=== PATIENT | female | born 2000 | race Caucasian/White ===

== ENCOUNTER 2023-06-12 15:53 | Outpatient (REF) | payer OTHER, SELFPAY ==
[2023-06-13 09:29] LABS: Syphilis Screen Nonreactive (Nonreactive)
== END 2023-06-12 15:54 | disposition home or self-care (01) ==
LOC: HO.HHCL 15:53
PROVIDERS: Visit Provider Registered Nurse
DX: Z11.3 Encounter for screening for infections with a predominantly sexual mode of transmission (principal)
CPT/HCPCS: 36415; 86780

== ENCOUNTER 2024-03-03 13:43 | Outpatient (REF) | payer MEDICAID, SELFPAY ==
[2024-03-06 16:54] LABS: TS Negative Control Passed; TS Panel A 0; TS Panel B 0; TS Positive Control Passed; TSpotTB Negative (Negative)
== END 2024-03-03 13:44 | disposition home or self-care (01) ==
LOC: HO.HHCL 13:43
PROVIDERS: Visit Provider Internal Medicine
DX: Z00.00 Encounter for general adult medical examination without abnormal findings (principal)
CPT/HCPCS: 36415; 86481

== ENCOUNTER 2025-04-04 16:15 | Outpatient (REF) | payer MEDICAID, SELFPAY ==
--- OUTSIDE RECORDS SUMMARY | 2025-04-04 16:29 | XMS_ITS | Encounter Summary ---
Author Organization [employer] Address [address] [place] [address] Care Team Providers Care Almond Blancher Operator Name Role Phone [place] [facility] Primary Care Provider [phone] Reason for Visit * Reason Onset Date Comments Chart Prep 04/03/2025 Encounter Details Date Type Department Care Team ([facility] st Contact Info) Description 04/03/[address] [facility] [address] [place], [place] [phone] [facility] [address] [place], [place] [phone] Chart Prep Social History Tobacco Use Types Packs/Day Years Used Date Smoking Tobacco: Never Passive Smoke Exposure: Never Smokeless Tobacco: Never Alcohol Use Standard Drinks/Week Comments Not Currently 0 (1 standard drink = 0.6 oz pur e alcohol) Depression Answer Date Recorded Patient Health Questionnaire-9 Score 0 09/12/2024 Patient Health Questionnaire-9 Score 0 09/12/2024 Last PHQ-9: Questionnaire Data Not on file 1 11/13/2023 Housing Stability Answer Date Recorded What is your housing situation today? I have macho baldwin 05/30/[address] you li ve. Do you have problems with any of the following? None of the above 05/30/2024 Food Insecurity Answer Date Recorded Within the past 12 months, y ou worried that your food would run out before you got money to buy more: Never True 09/12/2024 Within the past 12 months,th e food you bought just didn't last and you didn't have enough money to get more: Never True 06/2024 Transportation Answer Date Recorded In the past 12 months, has l ack of transportation kept you from medical appts, meetings, work or from getting things needed for daily living? No 03/03/2024 Utilities Answer Date Recorded In the past 12 months, has t he electric, gas, oil or water company threatened to shut off services in your home? No 03/03/2024 Depression Answer Date Recorded Patient Health Questionnaire-2 Score 0 09/12/2024 Internet Access Answer Date Recorded Internet Access Q1 Yes 06/06/2024 Internet Access Q2 Not on file 06/06/2024 Comments No Sex and Gender Information Value Date Recorded Sex Assigned at Female 08/04/2022 10:16 AM EDT Legal Sex Female 10:16 AM EDT Gender Identity Female 08/04/2022 10:16 AM EDT Sexual Orientation Choose not to disclose 2021 10:16 AM EDT documented as of this encounter Miscellaneous Notes * Telephone Encounter - Paige Velasco [place] - 04/03/2025 3:14 PM EDT Chart Prep Labs: not applicable Images: not applicable Screenings: HIV screening Vaccines due: Covid Due, PCV20 Due, and MCV4 Due Referrals: Not Applicable Overdue care gaps: GAD7, Disability , and Oral Health documented in this encounter Plan of Treatment Upcoming Encounters Date Type Department Care Team (Late st Contact Info) Description 05/15/2025 1:00 PM EDT Office Visit [facility] MED[facility] [address] [place] [address] Ritu Segundo FNP [address] [place] [address] documented as of this encounter Visit Diagnoses Not on filedocumented in this encounter Additional Health Concerns Assessment Noted Time PHQ-9 Depression Total Score: 0 09/12/20 24 11:03 AM EST documented as of this encounter Care Teams Almond Blancher Operator Relationship Specialty Start Date End Date Ritu Segundo FNP [address] [place] [address] PCP - General Family Medicine 04/09/22 María Olivarez Wood Crafts[employer] 06/09/24 documented as of this encounter
[2025-04-05 11:30] LABS: Bacterial Vaginosis PCR POSITIVE (Negative); Candida Group PCR NOT DETECTED (Not Detect); Candida glab krusei PCR NOT DETECTED (Not Detect); Trichomonas vaginalis PCR NOT DETECTED (Not Detect)
== END 2025-04-04 16:16 | disposition home or self-care (01) ==
LOC: HO.LNP 16:15
PROVIDERS: Visit Provider Advanced Practice Midwife
DX: N89.8 Other specified noninflammatory disorders of vagina (principal)
CPT/HCPCS: 81515